=== PATIENT | female | born 1945 | race African-American/Black ===

== ENCOUNTER → 2016-07-19 | Outpatient (CLI) | payer MEDICARE ==
[~2016-07-19] MED LIST: ACETAMINOPHEN PO; ALBUTEROL 0.5ML NEB; ARIXTRA2.5 MG/0.1 SQ; ASPIRIN PO; ASPIRIN81 M1 PO; ASPIRIN81 MG PO; BACTRIM DS TAB1 EACH PO; BACTRIM DS TABL1 TA1 PO; BACTRIM DS TABL1 TAB PO; BAYER CHEWABLE81 MG PO; CARAFATE1 GM PO; CATAPRES-TTS-20.2 M1 TD; CATAPRES0.1 MG TD; CLOPIDOGREL75 MG PO; COLACE PO; COUMADIN2.5 MG PO; DAKIN'S MODIF1000 ML EXT; DARVOCET-N 1001 TA1 PO; ELIQUIS5 MG PO; FERREX 150 PLU1 EACH PO; FLEXERIL PO; GLUCOPHAGE500 MG PO; GLUCOTROL PO; HUMALOG100 UNIT/2 SUBQ; HUMULIN N VIAL; HUMULIN N VIAL SUBQ; HYDRALAZINE HCL25 MG PO; HYDROCHLOROTHIA25 MG PO; HYDROCODON-ACE1 EAC5 PO; HYDROCODONE/APA1 T16 PO; IRON325 ( 651 PO; LANTUS SOL100 UNIT/1 SUBQ; LANTUS100 U/ML SUBD; LANTUS100 U/ML SUBQ; LEVAQUIN PO; LEVAQUIN750 M1 PO; LIPITOR80 MG PO; LISINOPRIL PO; LISINOPRIL20 MG PO; LOPRESSOR PO; LORTAB 10-5001 EACH PO; LORTAB 5-325 M1 EACH PO; LORTAB 7.5-3251 EACH PO; LORTAB 7.5-5001 TAB PO; LORTAB PO; LOW DOSE ASPIRI81 M2 PO; MAGNESIUM200 MG PO; MAGNESIUM400 M1 PO; MAGNESIUM400 MG PO; MAGOX 400400 MG PO; MELATONIN3 M4 PO; METFORMIN HCL750 MG PO; METFORMIN PO; METOPROLOL PO; METOPROLOL TAR100 MG PO; MIRALAX17 G2 PO; MULTIVITAMINS1 EAC3; NEURONTIN PO; NEURONTIN100 MG PO; NORVASC10 MG PO; NOVOLOG MI100 UNIT/1 SUBQ; NOVOLOG100 U/M2; NOVOLOG100 U/ML SUBQ; PERCOCET5/325 PO; PLAVIX PO; POLYSACC IRON150 MG PO; PRILOSEC20 M1 PO; PRINIVIL40 MG PO; PROBIOTIC250 MG PO; PROTONIX PO; REMERON15 MG PO; THERA-M CAPLET1 EACH PO; TOPROL XL PO; TOPROL XL100 MG PO; TYLENOL325 M1 PO; VICODIN 5/500 T1 TAB PO; XANAX0.5 M1 PO; ZESTORETIC 20/21 TAB PO; ZESTRIL40 MG PO; ZOFRAN8 MG PO; [UNRECOGNIZED DRUG - REMARK]
== END | disposition home or self-care (01) ==
LOC: CLAB 13:08
DX: H46.01 Optic papillitis, right eye (principal)
CPT/HCPCS: 36415; 85652; 86140

== ENCOUNTER 2016-08-09 20:49 | Emergency (ER) | payer MEDICARE ==
--- NOTE | ~2016-08-09 | CT16 ---
[facility] A Service of [facility] RADIOLOGY TEXT RESULTS PATIENT: MAC ALEXANDER LOCATION: [facility] : 44 UNIT #: [id number] AGE: [address]: Diana Melchor MD SEX: F ORDER DR: [id number] [facility] [address] [place], [place] [address] [id number] E MR#: [id number] Acc #: [id number] NAME: MAC ALEXANDER : 1945 SEX: F STUDY DATE/TIME: 08/10/2016 2:30 UNIT: [facility] ROOM: STUDY DESCRIPTION: CT Angio Chest for PE Attending Physician: Diana Melchor M.D. Ordering Physician: Diana Melchor M.D. Primary Care Physician: Luis Luna Jr., M.D. MEDICAL IMAGING REPORT This report is preliminary unless electronic signature is present EXAM CTA chest INDICATION Chest pain. Elevated D-dimer. Shortness of air for [address] angiography of the chest utilizing 100 mm Isovue-370 IV contrast. Coronal 3-D MIP reconstructions and standard sagittal reconstructions were obtained. This CT exam was performed with one or more of the following radiation dose reduction techniques: automatic exposure control, adjustment of mA and/or kV according to patient size, and iterative reconstruction. COMPARISON Chest radiograph dated 08/09/2016. FINDINGS No pulmonary embolus. There is moderate atherosclerotic disease within the thoracic aorta, however, there is no aneurysm or dissection. Great vessels are widely patent. 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 The superior mesenteric artery is nearly occluded. The celiac artery may be occluded. Dense calcifications in this area are limited in evaluation on CT. There are some borderline enlarged mediastinal and hilar lymph nodes. A precarinal lymph node measures 1.1 cm in short axis. There is emphysema in the lungs. There is diffuse tree-in-bud nodularity [facility] A Service [facility] RADIOLOGY TEXT RESULTS PATIENT: MAC ALEXANDER LOCATION: [facility] : 44 UNIT #: [id number] AGE: [address]: Diana Melchor MD SEX: F ORDER DR: suggesting an acute infectious process. This has an upper lobe predominance, however is noted throughout both lungs. Central airways are patent. No dense consolidation. Limited images of the upper abdomen were obtained. There is a low-attenuation right adrenal nodule measuring 2.6 cm. This is consistent with a benign adrenal adenoma. No acute osseous abnormalities. IMPRESSION 1. Negative for pulmonary embolus. 2. Diffuse tree-in-bud nodularity with an upper lobe predominance in both lungs. This is most commonly associated with a small airways infection. No dense consolidation. 3. Diffuse atherosclerotic disease throughout the thoracic and abdominal aorta. 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 Dictated by... Jonny Delgadillo M.D. THIS IS AN ELECTRONICALLY VERIFIED REPORT Jonny Delgadillo M.D. at 08/10/2016 11:22 PM JOHNNIE/behzad TD: 08/10/2016 04:57 JOB #: [id number] MEDICAL IMAGING REPORT Page 1 of 1 COPY
--- NOTE | ~2016-08-09 | EKG ---
PATIENT: MAC ALEXANDER UNIT #: [id number] Ventricular Rate: 91 BPM Atrial Rate: 91 BPM P-R Interval: 154 ms QRS Duration: 88 ms Q-T Interval: 404 ms QTC Calculation(Bezet): 496 ms P [place]: 56 degrees Calculated R [place]: 72 degrees Calculated T [place]: 68 degrees Diagnosis Line: Sinus rhythm with Premature supraventricular Diagnosis Line: complexes Diagnosis Line: Prolonged QT Diagnosis Line: Abnormal ECG Diagnosis Line: When compared with ECG of 09-AUG-2016 20:52, Diagnosis Line: (unconfirmed) Diagnosis Line: Previous ECG has undetermined rhythm, needs review Diagnosis Line: Confirmed by JUSTINA DARBY MD ([id number]) on 08/11/2016 Diagnosis Line: 5:56:58 PM INTERPRETING MD: WILNER DEAN
--- NOTE | ~2016-08-09 | CR72 ---
[facility] A Service of [facility] RADIOLOGY TEXT RESULTS PATIENT: MAC ALEXANDER LOCATION: [facility] : 43 UNIT #: [id number] AGE: [address]: Diana Melchor MD SEX: F ORDER DR: [id number] [facility] [address] [place], [place] [address] [id number] E MR#: [id number] Acc #: [id number] NAME: MAC ALEXANDER : 1945 SEX: F STUDY DATE/TIME: 08/09/2016 22:37 UNIT: [facility] ROOM: STUDY DESCRIPTION: CR Chest Single View Portable Attending Physician: Diana Melchor M.D. Ordering Physician: Ed Tera Wolf M.D. Primary Care Physician: Luis Luna Jr., M.D. MEDICAL IMAGING REPORT This report is preliminary unless electronic signature is present EXAM Single view chest. INDICATION Chest pain. Shortness of air. FINDINGS Single portable AP view of the chest compared to 06/15/2008. Heart and mediastinal contours are unchanged. There is some chronic interstitial opacities in both lungs. No focal consolidation. IMPRESSION Mild cardiomegaly and chronic interstitial opacities. No new findings. Dictated by... Jonny Delgadillo M.D. THIS IS AN ELECTRONICALLY VERIFIED REPORT Jonny Delgadillo M.D. at 08/10/2016 4:03 AM JOHNNIE/zaynab TD: 08/10/2016 02:46 JOB #: [id number] MEDICAL IMAGING REPORT Page 1 of 1 COPY
[~2016-08-09 20:49] MED LIST changes: -ALBUTEROL 0.5ML NEB; -ASPIRIN81 MG PO; -BACTRIM DS TAB1 EACH PO; -CARAFATE1 GM PO; -CATAPRES-TTS-20.2 M1 TD; -CATAPRES0.1 MG TD; -ELIQUIS5 MG PO; -FERREX 150 PLU1 EACH PO; -FLEXERIL PO; -HUMALOG100 UNIT/2 SUBQ; -HUMULIN N VIAL; -LANTUS SOL100 UNIT/1 SUBQ; -LIPITOR80 MG PO; -LISINOPRIL20 MG PO; -LORTAB 5-325 M1 EACH PO; -LOW DOSE ASPIRI81 M2 PO; -MAGNESIUM400 M1 PO; -MAGOX 400400 MG PO; -MIRALAX17 G2 PO; -MULTIVITAMINS1 EAC3; -NOVOLOG MI100 UNIT/1 SUBQ; -PRINIVIL40 MG PO; -THERA-M CAPLET1 EACH PO; -TOPROL XL100 MG PO; -TYLENOL325 M1 PO
[2016-08-09 21:46] LABS: BASOPHIL% 0.2 % (0-2.5); EOSINOPHIL# 0.2 X10e3 (0-0.7); EOSINOPHIL% 1.7 % (0.0-7.0); HEMATOCRIT 30.8 % (35.0-45.0); HEMOGLOBIN 9.2 gm/dL (12.0-16.0); LYMPHOCYTE# 3.7 X10e3 (1.0-3.5); LYMPHOCYTE% 33.4 % (17.0-45.0); MEAN CELL VOLUME 65.2 FL (83-96); MEAN CORPUSCULAR HEMOGLOBIN 19.4 PG (28-34); MEAN CORPUSCULAR HGB CONC 29.8 g/dL (30-36); MEAN PLATELET VOLUME 8.6 FL (6.5-11.5); MONOCYTE# 0.8 X10e3 (0-1.0); MONOCYTE% 7.3 % (3.0-12.0); NEUTROPHIL# 6.4 X10e3 (1.5-7.1); NEUTROPHIL% 57.4 % (40-75); PLATELET COUNT 378 X10e3 (140-420); RED BLOOD COUNT 4.72 X10e (3.90-5.30); RED CELL DISTRIBUTION WIDTH 18.7 % (11.0-15.5); WHITE BLOOD COUNT 11.2 X10e3 (4.0-10.5)
[2016-08-09 21:49] LABS: DIFF IND NO
[2016-08-09 22:06] LABS: BILIRUBIN, DIRECT 0.1 mg/dL (0.0-0.2); BILIRUBIN,INDIRECT 0.3 mg/dL (0.0-0.9); BILIRUBIN,TOTAL 0.4 mg/dL (0.2-2.0); BUN/CREATININE RATIO 13.33; CALCIUM SERUM 8.5 mg/dL (8.4-10.2); CREATININE SERUM 0.6 mg/dL (0.6-1.4); GLOM FILT RATE Estimated 105.5 mL/min (>60); POTASSIUM 3.1 mmol/L (3.5-5.1); PROTEIN TOTAL SERUM 7.2 g/dL (6.0-8.3)
[2016-08-09 23:22] LABS: POC - CKMB 2.1 ng/mL (0.0-7.9); POC - TROPONIN <0.05 ng/mL (<=0.05)
[2016-08-10 02:05] LABS: POC - CKMB 1.6 ng/mL (0.0-7.9); POC - TROPONIN <0.05 ng/mL (<=0.05)
== END 2016-08-10 04:23 | disposition home or self-care (01) ==
LOC: CED 20:49
PROVIDERS: Emergency Medicine
DX: J40 Bronchitis, not specified as acute or chronic (principal); I10 Essential (primary) hypertension; E78.5 Hyperlipidemia, unspecified; Z98.890 Other specified postprocedural states; Z88.0 Allergy status to penicillin; Z79.899 Other long term (current) drug therapy; Z79.4 Long term (current) use of insulin
CPT/HCPCS: 36415; 71010; 71275; 80048; 80076; 82553; 84484; 85025; 85379; 93005; 99284; Q9967

== ENCOUNTER 2016-10-03 20:32 | Inpatient (IN) | payer MEDICARE ==
[~2016-10-03] VITALS: Ht 154.9 cm; Wt 72.0 kg
--- NOTE | ~2016-10-03 | DS ---
Unit #: [id number] #: [id number] Patient: MAC ALEXANDER [id number] [address] [place], [place] [address] [id number] I MR#: [id number] NAME: MAC ALEXANDER. ROOM: 326 Age: 71 Sex: F Admission Date: 10/03/2016 : 1945 Discharge Date: 10/09/2016 Attending Physician: Augustus Pandey M.D. Referring Physician: Luis Luna Jr., M.D. Primary Care Physician: Luis Luna Jr., M.D. DISCHARGE SUMMARY DISCHARGE DIAGNOSES 1. Acute blood loss anemia, status post transfusion, status post [facility] evaluation, status post EGD which showed peptic ulcer disease. Continue twice daily proton pump inhibitor per [facility]' recommendation. Avoid anticoagulation. Okay for baby aspirin. 2. Leukocytosis, status post negative procalcitonin at 0.05. No signs of active infection, afebrile. Discharge date leukocytes 13.8, most likely reactive. 3. Diabetes. Had been not eating well secondary to some nausea and vomiting. Therefore, continue just the sliding scale. Consider resuming home insulin regime as she starts taking more p.o. 4. History of cerebrovascular accident. Continue baby aspirin. DISCHARGE MEDICATIONS 1. Tylenol p.r.n. 2. Albuterol inhaler q.6 hours p.r.n. nebulizer for shortness of air. 3. Magnesium oxide 200 mg daily. 4. Neurontin 200 mg p.o. t.i.d. 5. Zofran 8 mg q.8 hours p.r.n. for nausea. 6. Lipitor 80 mg at bedtime. 7. Norvasc 5 mg daily. 8. Toprol-XL 100 mg p.o. b.i.d. 9. MiraLax daily. 10. Catapres 0.2 mg transdermal weekly. 11. Lisinopril 20 mg daily. 12. Sliding scale insulin. 13. Ferrex 150 plus capsule 1 tablet b.i.d. 14. Carafate 1 g p.o. before meals and at bedtime. 15. Multivitamin daily. 16. Baby aspirin 81 mg daily. 17. Lortab 5/325 at 1 tablet q.6 p.r.n. for pain. 18. Protonix 40 p.o. b.i.d. DISPOSITION Going back to [facility] to Dr. Jasiel Paniagua[facility] to follow patient [facility]. Dictated by..Reji Springer M.D. OC/am TD: 10/09/2016 18:29 Unit #: [id number] #: [id number] Patient: MAC ALEXANDER JOB #: [id number] DISCHARGE SUMMARY Page 1 of 1 X Ilia Springer MD X DISCHARGE SUMMARY
--- NOTE | ~2016-10-03 | HP ---
Unit #: [id number] #: [id number] Patient: MAC ALEXANDER [id number] [address] [place], [place] [address] [id number] I MR#: [id number] NAME: MAC ALEXANDER. ROOM: 326 Age: 71 Sex: F Admission Date: 10/04/2016 : 1945 Attending Physician: Augustus Pandey M.D. Referring Physician: Luis Luna Jr., M.D. Primary Care Physician: Luis Luna Jr., M.D. HISTORY AND PHYSICAL CHIEF COMPLAINT Acute GI bleed. HISTORY OF PRESENT ILLNESS The patient is a 71-year-old female who is a resident of [facility], came because of the GI bleed. Patient is a very poor historian. A lot of history was taken from patient's daughter and also from ER notes. Patient was admitted at [facility] in August for the same kind of reason and she went for EGD and a cardiac arrest per patient's daughter and after that she was sent to [facility] for further treatment. Patient was transferred from [facility] for above reason. She is complaining of abdominal pain. She is still vomiting. She had a bowel movement, which was bright red blood. No complaint of fever, chills, or rigors, at least patient does not know. PAST MEDICAL HISTORY 1. Diabetes mellitus. 2. Hypertension. 3. History of CVA. 4. 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 5. History of GI bleed in the past. 6. History of peripheral vascular disease, status post right above knee amputation. 7. History of anemia. 8. History of hypertension. 9. Hyperlipidemia. 10. Chronic pain. 11. Depression. HOME MEDICATIONS 1. Proventil inhaler nebulizer p.r.n. 2. Aspirin 81 mg daily. 3. Catapres 0.2 mg q. weekly. 4. Multivitamin q. day. 5. Flexeril 5 mg twice a day. 6. Eliquis 5 mg twice a day. I am not sure about this medication as per patient's daughter, she has been off since July. 7. Ferrex 150 plus twice a day. 8. Neurontin 200 mg 3 times a day. 9. Humulin N sliding scale. 10. Lantus 10 units at bedtime. 11. Lipitor 80 mg daily. 12. Prinivil 40 mg daily. 13. MiraLAX 17 g daily. Unit #: [id number] #: [id number] Patient: MAC ALEXANDER 14. Lortab 5/325 p.r.n. 15. Norvasc 5 mg daily. 16. Protonix 40 mg daily. 17. Toprol XL 100 mg twice a day. 18. Zofran 8 mg q.8 p.r.n. SOCIAL HISTORY Patient is at a rehab facility at this time. No history of smoking, alcohol, or drug abuse. PAST SURGICAL HISTORY 1. History of right above knee amputation. 2. History of IVC filter placed. 3. History of hernia repair. FAMILY HISTORY History of diabetes in the family. ALLERGIES Penicillin. REVIEW OF SYSTEMS As per history of presenting illness. According to patient's daughter there was no fever, chills or rigors. There was no chest pain. No syncopal episode. No dizziness. The rest is as per history of presenting illness. PHYSICAL EXAMINATION GENERAL: The patient is lying in bed, is still vomiting. VITAL SIGNS: Blood pressure is 171/52, respiratory rate 16, pulse 60, temperature 98.8, oxygen saturation is 100%. HEENT: Head is normocephalic. Eye movements normal. Pale conjunctivae. CHEST: Fair air entry, decreased at the bases. CVS: S1 and S2 positive. Regular rhythm. ABDOMEN: Tenderness is present throughout. EXTREMITIES: Negative edema. 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 No focal neurological deficit. As far as I can tell, but this exam was limited, please note patient has right lower extremity above knee amputation. DIAGNOSTIC STUDIES LABORATORY STUDIES: Done in the ER shows sodium 134, potassium 4.2, chloride 101, BUN 23, creatinine 0.7. WBC is 13.9, hemoglobin 4.9, hematocrit 16.8 and platelet count of 291. ASSESSMENT The patient is being admitted to ICU with: 1. Severe anemia. 2. Acute GI bleed. 3. Abdominal pain. 4. History of chronic pancreatitis. 5. Diabetes mellitus. 6. History of CVA. 7. History of PE and DVT. 8. Hypertension. PLAN Admit to ICU. Packed rbc's transfusion is being started. Dr. De Guzman has Unit #: [id number] #: [id number] Patient: MAC ALEXANDER C been consulted. IV Protonix drip is being started. Discharge summary from [facility] will be obtained. Amylase and lipase will be done. Cardiac enzymes will be done. Urinalysis and culture will be done. SCDs bilateral for DVT prophylaxis. Accu-Chek a.c. and h.s. and insulin sliding scale, low does protocol. Home medications have been reviewed and adjusted. Please refer to progress note for further orders. I have discussed with patient's daughter about plan of care. Dictated by Altagracia Buitrago TD: 10/04/2016 12:44 JOB #: [id number] HISTORY AND PHYSICAL Page 1 of 1 X Deepthi Gann MD X HISTORY AND PHYSICAL
--- NOTE | ~2016-10-03 | EKG ---
PATIENT: MAC ALEXANDER UNIT #: [id number] Ventricular Rate: 79 BPM Atrial Rate: 79 BPM P-R Interval: 146 ms QRS Duration: 88 ms Q-T Interval: 402 ms QTC Calculation(Bezet): 460 ms P [place]: 46 degrees Calculated R [place]: 123 degrees Calculated T [place]: -15 degrees Diagnosis Line: Sinus rhythm with occasional Premature ventricular Diagnosis Line: complexes Diagnosis Line: Left posterior fascicular block Diagnosis Line: T wave abnormality, consider inferior ischemia Diagnosis Line: Abnormal ECG Diagnosis Line: When compared with ECG of 04-OCT-2016 12:35, Diagnosis Line: Premature ventricular complexes are now Present Diagnosis Line: Left posterior fascicular block is now Present Diagnosis Line: T wave inversion now evident in Inferior leads Diagnosis Line: T wave amplitude has increased in Lateral leads Diagnosis Line: Confirmed by GUILLE ELMORE MD ([id number]) on Diagnosis Line: 10/07/2016 7:30:22 AM INTERPRETING MD: CATARINA DEAN
--- NOTE | ~2016-10-03 | OR ---
Unit #: [id number] #: [id number] Patient: MAC ALEXANDER [id number] [address] [place], [place] [address] [id number] I MR#: [id number] NAME: MAC ALEXANDER. ROOM: 326 Date of Procedure: 10/07/2016 Admission Date: 10/03/2016 Surgeon: Sylvester Madrigal III, M.D. : 1945 Attending Physician: Augustus Pandey M.D. Referring Physician: Luis Luna Jr., M.D. Primary Care Physician: Luis Luna Jr., M.D. OPERATIVE REPORT PREOPERATIVE DIAGNOSIS Gastrointestinal bleed with anemia. POSTOPERATIVE DIAGNOSIS Multiple ulcers within the stomach with a prominent ulcer along the lesser curvature with a plaque. She also had mild scattered diverticulosis of the colon. PROCEDURES PERFORMED Esophagogastroduodenoscopy with biopsy and colonoscopy to cecum. ANESTHESIA MAC. SPECIMENS Antrum was sent for LIZETTE testing. COMPLICATIONS None apparent. INDICATIONS FOR PROCEDURE This is a 71-year-old lady, who has previously been anticoagulated. She developed a GI bleed with anemia and has stabilized after transfusion. She is here today for upper and lower endoscopy. DESCRIPTION OF PROCEDURE After consent was obtained, the patient was brought to the endoscopy suite, placed in the left lateral decubitus position. We titrated the above sedation and I passed an EGD scope easily into the esophagus under direct visualization. She had normal peristalsis. No evidence of any erosions or esophagitis. There was no significant hiatal hernia seen. I advanced the scope on into the stomach and she had some diffuse ulcerations along the greater curvature of the stomach, but no active bleeding. She did have an approximately a 1.5 cm to 2 cm ulcer along the lesser curvature of the stomach that was covered with the plaque. There was no active bleeding. I did take a biopsy of the antrum for LIZETTE testing. The pylorus was patent, and the 1st and 2nd portions of the duodenum appeared normal. I then again retroflexed the scope within the cardia and did not see any other abnormalities. The scope was then placed within the rectal vault. Air was insufflated and I navigated the scope all the way to the cecum without any difficulty. She had normal mucosa. There was some dark black liquid within the colon, but no active bleeding. Unit #: [id number] #: [id number] Patient: MAC ALEXANDER I did not see any masses or polyps. She did have some mild scattered diverticular disease, but there was no blood from any of the diverticula. I did not see any AVMs. The scope was retroflexed within the rectum and no other masses were seen. The scope was then carefully withdrawn. The patient tolerated the procedure without any problems and returned to the recovery room in stable condition. We will go ahead, and maintain her on Protonix and add Carafate. Dictated by... Sylvester Madrigal III, M.D. VCL/gloria TD: 10/09/2016 04:10 JOB #: [id number] OPERATIVE REPORT Page 1 of 1 X Sylvester Madrigal III, MD PROCEDURE OPERATIVE NOTE
--- NOTE | ~2016-10-03 | EKG ---
PATIENT: MAC ALEXANDER UNIT #: [id number] Ventricular Rate: 66 BPM Atrial Rate: 66 BPM P-R Interval: 156 ms QRS Duration: 92 ms Q-T Interval: 422 ms QTC Calculation(Bezet): 442 ms P [place]: 52 degrees Calculated R [place]: 50 degrees Calculated T [place]: 41 degrees Diagnosis Line: Normal sinus rhythm Diagnosis Line: Possible Left atrial enlargement Diagnosis Line: Borderline ECG Diagnosis Line: When compared with ECG of 09-AUG-2016 20:54, Diagnosis Line: Premature supraventricular complexes are no longer Diagnosis Line: Present Diagnosis Line: QT has shortened Diagnosis Line: Confirmed by GUILLE ELMORE MD ([id number]) on Diagnosis Line: 10/05/2016 8:29:58 AM INTERPRETING MD: CATARINA DEAN
[2016-10-03 21:51] LABS: BASOPHIL# 0.1 X10e3 (0-0.3); EOSINOPHIL# 0.8 X10e3 (0-0.7); EOSINOPHIL% 5.7 % (0.0-7.0); HEMATOCRIT 16.8 % (35.0-45.0); LYMPHOCYTE# 3.3 X10e3 (1.0-3.5); LYMPHOCYTE% 23.6 % (17.0-45.0); MEAN CELL VOLUME 63.9 FL (83-96); MEAN CORPUSCULAR HEMOGLOBIN 18.8 PG (28-34); MEAN CORPUSCULAR HGB CONC 29.5 g/dL (30-36); MEAN PLATELET VOLUME 9.2 FL (6.5-11.5); MONOCYTE% 7.4 % (3.0-12.0); NEUTROPHIL# 8.6 X10e3 (1.5-7.1); NEUTROPHIL% 62.3 % (40-75); PLATELET COUNT 291 X10e3 (140-420); RED BLOOD COUNT 2.62 X10e (3.90-5.30); RED CELL DISTRIBUTION WIDTH 26.6 % (11.0-15.5); WHITE BLOOD COUNT 13.9 X10e3 (4.0-10.5)
[2016-10-03 22:00] LABS: DIFF IND YES; HEMOGLOBIN 4.9 gm/dL (12.0-16.0)
[2016-10-03 22:12] LABS: INR 1.1; PARTIAL THROMBOPLASTIN TIME 24.6 SECONDS (23.5-31.3); PROTHROMBIN TIME (PATIENT) 11.5 SECONDS (10.0-11.7)
[2016-10-03 22:14] LABS: ALBUMIN SERUM 2.5 g/dL (3.5-5.0); ALKALINE PHOSPHATASE 107 U/L (32-92); ALT (SGPT) 12 U/L (10-40); AST (SGOT) 17 U/L (10-42); BILIRUBIN, DIRECT <0.1 mg/dL (0.0-0.2); BILIRUBIN,INDIRECT 0.3 mg/dL (0.0-0.9); BILIRUBIN,TOTAL 0.4 mg/dL (0.2-2.0); BLOOD UREA NITROGEN 23 mg/dL (9-23); BUN/CREATININE RATIO 32.85; CALCIUM SERUM 8.2 mg/dL (8.4-10.2); CARBON DIOXIDE 28 mmol/L (22-31); CHLORIDE 101 mmol/L (100-111); CREATININE SERUM 0.7 mg/dL (0.6-1.4); GLOM FILT RATE Estimated 100.3 mL/min (>60); GLUCOSE FASTING 143 mg/dL (70-110); POTASSIUM 4.2 mmol/L (3.5-5.1); PROTEIN TOTAL SERUM 5.9 g/dL (6.0-8.3); SODIUM 134 mmol/L (135-145)
[2016-10-03 22:22] LABS: PLATELET ESTIMATE NORMAL (NORMAL)
[2016-10-03 22:23] LABS: ACANTHOCYTES PRESENT; ANISOCYTOSIS MOD; OVALOCYTES PRESENT; TARGET CELLS MOD
[2016-10-03 22:24] LABS: BURR CELLS PRESENT
[2016-10-04] MEDS ORDERED: ALBUTEROL 0.5ML NEB (01:10)
[2016-10-04] MEDS ORDERED: ASPIRIN81 MG PO (01:11)
[2016-10-04] MEDS ORDERED: MULTIVITAMINS1 EAC3 (01:11)
[2016-10-04] MEDS ORDERED: CATAPRES0.1 MG TD (01:11)
[2016-10-04] MEDS ORDERED: FLEXERIL PO (01:13)
[2016-10-04] MEDS ORDERED: ELIQUIS5 MG PO (01:13)
[2016-10-04] MEDS ORDERED: FERREX 150 PLU1 EACH PO (02:07)
[2016-10-04] MEDS ORDERED: NEURONTIN100 MG PO (02:08)
[2016-10-04] MEDS ORDERED: HUMULIN N VIAL (02:08)
[2016-10-04] MEDS ORDERED: LANTUS100 U/ML SUBQ (02:09)
[2016-10-04] MEDS ORDERED: LIPITOR80 MG PO (02:10)
[2016-10-04] MEDS ORDERED: PRINIVIL40 MG PO (02:11)
[2016-10-04] MEDS ORDERED: MIRALAX17 G2 PO (02:11)
[2016-10-04] MEDS ORDERED: MAGOX 400400 MG PO (02:11)
[2016-10-04] MEDS ORDERED: LORTAB 5-325 M1 EACH PO (02:13)
[2016-10-04] MEDS ORDERED: NORVASC10 MG PO (02:14)
[2016-10-04] MEDS ORDERED: POLYSACC IRON150 MG PO (02:15)
[2016-10-04] MEDS ORDERED: NOVOLOG MI100 UNIT/1 SUBQ (02:15)
[2016-10-04] MEDS ORDERED: PROTONIX PO (02:16)
[2016-10-04] MEDS ORDERED: TOPROL XL100 MG PO (02:17)
[2016-10-04] MEDS ORDERED: ZOFRAN8 MG PO (02:17)
[2016-10-04 12:29] LABS: HEMATOCRIT 25.5 % (35.0-45.0)
[2016-10-04 16:48] LABS: HEMATOCRIT 24.4 % (35.0-45.0); HEMOGLOBIN 7.7 gm/dL (12.0-16.0)
[2016-10-04 17:07] LABS: AMYLASE 12 U/L (0-46); CK TOTAL 22 IU/L (26-140); LIPASE 24 U/L (22-51)
[2016-10-04 20:41] LABS: HEMOGLOBIN 7.2 gm/dL (12.0-16.0)
[2016-10-04 23:18] LABS: HEMATOCRIT 22.4 % (35.0-45.0); HEMOGLOBIN 7.1 gm/dL (12.0-16.0)
[2016-10-05 08:25] LABS: HEMATOCRIT 20.3 % (35.0-45.0)
[2016-10-05 08:45] LABS: HEMOGLOBIN 6.2 gm/dL (12.0-16.0)
[2016-10-05 14:57] LABS: HEMATOCRIT 24.1 % (35.0-45.0); HEMOGLOBIN 7.5 gm/dL (12.0-16.0)
[2016-10-05 15:05] LABS: CALCIUM SERUM 7.9 mg/dL (8.4-10.2); CREATININE SERUM 0.6 mg/dL (0.6-1.4); GLOM FILT RATE Estimated 105.5 mL/min (>60); POTASSIUM 4.4 mmol/L (3.5-5.1)
[2016-10-05 21:16] LABS: HEMATOCRIT 25.8 % (35.0-45.0); HEMOGLOBIN 8.2 gm/dL (12.0-16.0)
[2016-10-05 22:27] LABS: CK TOTAL 21 IU/L (26-140)
[2016-10-06 01:55] LABS: HEMATOCRIT 24.9 % (35.0-45.0); HEMOGLOBIN 7.9 gm/dL (12.0-16.0)
[2016-10-06 04:27] LABS: HEMATOCRIT 25.8 % (35.0-45.0); MEAN CELL VOLUME 79.1 FL (83-96); MEAN CORPUSCULAR HEMOGLOBIN 24.5 PG (28-34); MEAN PLATELET VOLUME 9.5 FL (6.5-11.5); RED BLOOD COUNT 3.27 X10e (3.90-5.30); RED CELL DISTRIBUTION WIDTH 22.9 % (11.0-15.5); WHITE BLOOD COUNT 16.7 X10e3 (4.0-10.5)
[2016-10-06 06:35] LABS: BUN/CREATININE RATIO 33.33; CALCIUM SERUM 8.1 mg/dL (8.4-10.2); CREATININE SERUM 0.6 mg/dL (0.6-1.4); GLOM FILT RATE Estimated 105.5 mL/min (>60); POTASSIUM 4.1 mmol/L (3.5-5.1)
[2016-10-06 09:09] LABS: HEMATOCRIT 25.7 % (35.0-45.0); HEMOGLOBIN 8.1 gm/dL (12.0-16.0)
[2016-10-06 12:19] LABS: HEMATOCRIT 26.2 % (35.0-45.0)
[2016-10-07 05:35] LABS: BASOPHIL# 0.1 X10e3 (0-0.3); BASOPHIL% 0.6 % (0-2.5); EOSINOPHIL# 1.3 X10e3 (0-0.7); EOSINOPHIL% 8.7 % (0.0-7.0); HEMATOCRIT 25.7 % (35.0-45.0); HEMOGLOBIN 8.2 gm/dL (12.0-16.0); LYMPHOCYTE# 4.3 X10e3 (1.0-3.5); LYMPHOCYTE% 29.1 % (17.0-45.0); MEAN CELL VOLUME 78.6 FL (83-96); MEAN CORPUSCULAR HGB CONC 31.9 g/dL (30-36); MEAN PLATELET VOLUME 9.8 FL (6.5-11.5); MONOCYTE# 1.2 X10e3 (0-1.0); MONOCYTE% 8.1 % (3.0-12.0); NEUTROPHIL# 7.9 X10e3 (1.5-7.1); NEUTROPHIL% 53.5 % (40-75); PLATELET COUNT 218 X10e3 (140-420); RED BLOOD COUNT 3.27 X10e (3.90-5.30); WHITE BLOOD COUNT 14.8 X10e3 (4.0-10.5)
[2016-10-07 05:38] LABS: DIFF IND NO
[2016-10-07 06:35] LABS: CALCIUM SERUM 8.1 mg/dL (8.4-10.2); CREATININE SERUM 0.5 mg/dL (0.6-1.4); GLOM FILT RATE Estimated 112.1 mL/min (>60); POTASSIUM 3.5 mmol/L (3.5-5.1)
[2016-10-07 06:55] LABS: PROCALCITONIN 0.05 NG/ML
[2016-10-08 08:31] LABS: HEMATOCRIT 26.4 % (35.0-45.0); HEMOGLOBIN 8.4 gm/dL (12.0-16.0); MEAN CELL VOLUME 78.6 FL (83-96); MEAN CORPUSCULAR HGB CONC 31.8 g/dL (30-36); MEAN PLATELET VOLUME 9.9 FL (6.5-11.5); RED BLOOD COUNT 3.35 X10e (3.90-5.30); RED CELL DISTRIBUTION WIDTH 22.1 % (11.0-15.5); WHITE BLOOD COUNT 15.6 X10e3 (4.0-10.5)
[2016-10-08 09:07] LABS: URINE APPEARANCE CLEAR; URINE BILIRUBIN NEG (NEG); URINE BLOOD 1+ (NEG); URINE COLOR YELLOW; URINE GLUCOSE NEG (NEG); URINE KETONE NEG (NEG); URINE LEUKOCYTE ESTERASE TRACE (NEG); URINE NITRATE NEG (NEG); URINE PH 7.5 (5-8); URINE PROTEIN 1+ (NEG); URINE SPECIFIC GRAVITY 1.009 (1.003-1.035); URINE UROBILINOGEN 0.2 MG/DL (NEG)
[2016-10-08 09:08] LABS: CALCIUM SERUM 8.1 mg/dL (8.4-10.2); CREATININE SERUM 0.5 mg/dL (0.6-1.4); GLOM FILT RATE Estimated 112.1 mL/min (>60); POTASSIUM 3.6 mmol/L (3.5-5.1)
[2016-10-08 09:15] LABS: CULTURE INDICATED? YES; URBCS1 AUWI 0-2 /[HPF] (0-2); URINE BACTERIA AUWI 2+ (NEGATIVE); URINE SQUAMOUS EPITHELIAL CELL NONE SEEN /[HPF]
[2016-10-09 09:12] LABS: HEMATOCRIT 25.5 % (35.0-45.0); HEMOGLOBIN 8.1 gm/dL (12.0-16.0); MEAN CELL VOLUME 78.8 FL (83-96); MEAN CORPUSCULAR HEMOGLOBIN 24.9 PG (28-34); MEAN CORPUSCULAR HGB CONC 31.7 g/dL (30-36); MEAN PLATELET VOLUME 9.6 FL (6.5-11.5); RED BLOOD COUNT 3.23 X10e (3.90-5.30); WHITE BLOOD COUNT 13.8 X10e3 (4.0-10.5)
== END 2016-10-10 11:33 | DRG 378 ==
LOC: CED 20:32 → C3A PCU 23:10 → CEDOF 23:10 → CED 10-04 00:13 → CEDOF 10-04 00:13 → C3A PCU 10-04 00:13 → CEDOF 10-04 03:40 → C3A PCU 10-10 11:33
PROVIDERS: Emergency Medicine; Hospitalist; Internal Medicine; Physician Assistant Medical; Surgery
PROC: 30233N1 Transfusion of Nonautologous Red Blood Cells into Peripheral Vein, Percutaneous Approach (ICD-10-PCS; 2016-10-03)
PROC: 0DB78ZX Excision of Stomach, Pylorus, Via Natural or Artificial Opening Endoscopic, Diagnostic (ICD-10-PCS; principal; 2016-10-09)
PROC: 0DJD8ZZ Inspection of Lower Intestinal Tract, Via Natural or Artificial Opening Endoscopic (ICD-10-PCS; 2016-10-09)
DX: K92.2 Gastrointestinal hemorrhage, unspecified (principal); D62 Acute posthemorrhagic anemia; E11.51 Type 2 diabetes mellitus with diabetic peripheral angiopathy without gangrene; Z89.611 Acquired absence of right leg above knee; D64.9 Anemia, unspecified; K25.9 Gastric ulcer, unspecified as acute or chronic, without hemorrhage or perforation; K57.30 Diverticulosis of large intestine without perforation or abscess without bleeding; F17.200 Nicotine dependence, unspecified, uncomplicated; Z86.73 Personal history of transient ischemic attack (TIA), and cerebral infarction without residual deficits; I10 Essential (primary) hypertension; Z86.711 Personal history of pulmonary embolism; Z86.718 Personal history of other venous thrombosis and embolism; E78.5 Hyperlipidemia, unspecified; G89.29 Other chronic pain; F32.9 Major depressive disorder, single episode, unspecified; Z79.82 Long term (current) use of aspirin; Z79.01 Long term (current) use of anticoagulants; Z79.4 Long term (current) use of insulin; Z83.3 Family history of diabetes mellitus; Z88.0 Allergy status to penicillin; D72.829 Elevated white blood cell count, unspecified
CPT/HCPCS: 36415; 80048; 80076; 81003; 82150; 82308; 82550; 82947; 83690; 84484; 85014; 85018; 85025; 85027; 85610; 85730; 86850; 86900; 86901; 86923; 87077; 87086; 93005; 94760; 97163; 97167; 97530; 97535; 99285; C9113; G8978-GP; G8979-GP; G8987-GO; G8988-GO; J0461; J1815; J2405; P9016

== ENCOUNTER 2016-11-18 18:16 | Inpatient (IN) | payer MEDICARE ==
[~2016-11-18] VITALS: Ht 154.9 cm; Wt 70.7 kg
--- NOTE | ~2016-11-18 | CO ---
Unit #: [id number] #: [id number] Patient: MAC NAVARRO [id number] [address] [place], [place] [address] [id number] I MR#: [id number] NAME: MAC NAVARRO. ROOM: 322 Age: 71 Sex: F Admission Date: 11/18/2016 : 1945 Attending Physician: Deepthi Gann M.D. Primary Care Physician: Luis Luna Jr., M.D. Consultation Date: 11/20/2016 CONSULTATION REPORT ADDITIONAL ATTENDING PHYSICIAN Augustus Pandey M.D. PRIMARY CARE PHYSICIAN Luis Luna M.D. MD2U. REASON FOR CONSULTATION GI bleed. HISTORY OF PRESENT ILLNESS Ms. Navarro is a 71-year-old female. Her daughter noticed the patient had some bleeding and noticed some fresh blood in the stool. Therefore brought her to the hospital. Incidentally, her hemoglobin has never been outside the range of between 8 and 9, and hemoglobin on admission was 8. Incidentally, the patient has had an upper endoscopy and a colonoscopy done by Dr. Madrigal about 2-1/2 months ago and these were unremarkable. It is also noteworthy the patient is a poor historian and is mostly complaining of back pain. She denies any history of abdominal pain and is not aware of passing any mary blood or having any hematemesis or melena. She is on long-term Eliquis because of her history of DVT and pulmonary embolism; although, she does have an IVC filter. PAST MEDICAL HISTORY Significant for history of diabetes, hypertension, stroke, COPD, peptic ulcer disease, chronic pain syndrome, depression, coronary artery disease. PAST SURGICAL HISTORY Included herniorrhaphy, placement of IVC filter, right above-knee amputation, left knee replacement. ALLERGIES She is allergic to penicillin. MEDICATIONS At home included Eliquis as well as aspirin, Proventil, Catapres, multivitamins, Flexeril, iron, Neurontin, insulin, Lipitor, Prinivil, magnesium oxide, Norvasc, Protonix, Lortab, MiraLAX, Toprol, and Zofran. SOCIAL HISTORY Smokes half pack of cigarette a day. Lives at home with her daughter. Does not drink alcohol. Unit #: [id number] #: [id number] Patient: MAC NAVARRO FAMILY HISTORY None of colon, pancreatic cancer, or liver disease. REVIEW OF SYSTEMS Detailed review of organ systems does not reveal any recent weight loss. No history of fever, chills, or rigors. No history of headaches, seizures, chest pain, or syncope. No history of cough, expectoration, or hemoptysis. There is no history of dysuria, hematuria, or pyuria. No history of focal seizures or extremity weakness. PHYSICAL EXAMINATION GENERAL: She is awake, alert, and oriented. She appears very anxious, apprehensive, and nervous. VITAL SIGNS: Stable with a temperature of 98.2, pulse is 108 per minute and regular, respiratory rate is 16, blood pressure is 128/94. She weighs 147 pounds close to her baseline weight. HEENT: She has mild pallor. There being no icterus, lymphadenopathy, or peripheral edema. CARDIOVASCULAR: Normal heart sounds. No murmurs on auscultation. LUNGS: Reveal normal breath sounds. Good air entry. ABDOMEN: Soft, obese, and nontender. Liver and spleen are not palpable. Bowel sounds normal. DIAGNOSTIC STUDIES LABORATORY RESULTS: Shows a hemoglobin of 8.1 with severely hypochromic microcytic indices and iron studies consistent with virtually no iron reserves, with iron ferritin and transferrin saturation all in single digits. White count is 14,000, platelet count is 264. INR is normal. BUN and creatinine are also normal. Sodium is 136, potassium 3.1, albumin is 2.9. LFTs show alkaline phosphatase is 187. INR is 0.9. CLINICAL IMPRESSION 1. Severe iron deficiency anemia. This seems to be chronic and has not corrected with oral iron, therefore intravenous iron therapy is appropriate and has already been started by Dr. Pandey. 2. Consider a diagnostic upper endoscopy later today and if the latter is normal, the patient can be discharged from GI standpoint. It is noteworthy she had a normal colonoscopy 2-1/[address] Madrigal. 3. Underlying long-term use of anticoagulation with Eliquis, needs to be revisited as this might be contributing to persistent anemia and occult gastrointestinal blood loss. Lastly, the patient has uncomorbidities with diabetes, hypertension, and anxiety as listed under the past medical history. An upper endoscopy to be done later today. Thank you very much for asking me to see this pleasant woman. I appreciate the consult. Dictated by... Altagracia Ruiz/gloria TD: 11/20/2016 18:23 JOB #: [id number] CC: Altagracia Leigh M.D. Jerry M. Benfield, Jr., M.D. Unit #: [id number] #: [id number] Patient: MAC NAVARRO CONSULTATION REPORT Page 1 of 1 X Taqueria De Guzman MD CONSULTATION REPORT
--- NOTE | ~2016-11-18 | HP ---
Unit #: [id number] #: [id number] Patient: MAC ALEXANDER [id number] [facility]. [place], [place] [address] [id number] I MR#: [id number] NAME: MAC ALEXANDER. ROOM: 322 Age: 71 Sex: F Admission Date: 11/18/2016 : 1945 Attending Physician: Deepthi Gann M.D. Primary Care Physician: Luis Luna Jr., M.D. HISTORY AND PHYSICAL HISTORY OF PRESENT ILLNESS The patient is a 71-year-old black female with a history of hypertension, type 2 diabetes mellitus, old CVA, PAD, right above the knee amputation, PE, DVT, IVC filter, apparently on Eliquis in the past with recurrent GI bleeding. Last admission September of 2016. Had an EGD showing peptic ulcer. It was recommended at that time that she DC her Eliquis and continue aspirin for stroke prevention. She was discharged to [facility]. Apparently she has been living at home now with her daughter and noticed some rectal bleeding. The patient is unaware of how long she has been bleeding or even that she was bleeding but stated that her daughter told her she saw blood in her stool. They called [facility] who came out and did a CBC and apparently referred her to the emergency room because of that. Here, her initial hemoglobin was 8.9. It has been stable since then and she was admitted for further evaluation. The patient is a poor historian. She is not sure if she had abdominal pain or not. She states that she didn't and then stated that she did just a few minutes ago but it is already gone. Of course, she has been NPO and may be having hunger pangs in any case. She is not clear about her home medicines. We have no official Med Rec. There is a list from the ER. I am not sure how correct it is but includes Proventil, aspirin, Catapres, multivitamins, Flexeril, Eliquis, iron, Neurontin, insulin, Lipitor, Prinivil, magnesium oxide, MiraLAX, Lortab, Norvasc, Protonix, Toprol and Zofran. ALLERGIES She has stated allergies to penicillin. SURGICAL HISTORY 1. Left knee replacement. 2. Right above the knee amputation. 3. Hernia repair. 4. IVC filter. PAST MEDICAL HISTORY 1. Coronary artery disease. 2. Hypertension. 3. CVA. 4. COPD. 5. Diabetes. 6. Peptic ulcer disease. 7. Chronic pain syndrome. 8. Depression. SOCIAL HISTORY Smokes half a pack of cigarettes daily. No alcohol or street drug use. Unit #: [id number] #: [id number] Patient: MAC ALEXANDER FAMILY HISTORY Noncontributory. PHYSICAL EXAMINATION She is awake, alert, oriented to person and place but not time. T-max overnight was 99.4, pulse 99, respirations 16, blood pressure 180/69. O2 sat 95% on room air. HEENT is unremarkable except for pale mucous membranes. NECK was supple without JVD, bruits, adenopathy or thyromegaly. CHEST clear to auscultation. HEART has a regular rate and rhythm without any murmurs, rubs or gallops. ABDOMEN was soft, nondistended, nontender with positive bowel sounds and no hepatosplenomegaly. EXTREMITIES show no clubbing, cyanosis or edema. Right above the knee amputation noted. AND RECTAL are deferred. NEUROLOGIC exam is grossly intact except for the patient's poor memory. DIAGNOSTIC STUDIES LAB VALUES: White count 11.8, hemoglobin 8.9 with low MCV, MCH and elevated RDW. Platelets 451,000. Stool for occult blood positive. Stool for C. diff negative. PT/INR 0.9, PTT 22.6, sodium 131. Random blood sugar of 504, alkaline phos of 187, albumin 2.9. IMPRESSION 1. Recurrent GI bleed. 2. Microcytic anemia. 3. Hypertension. 4. Type 2 diabetes mellitus. 5. Peripheral arterial disease, status post right above the knee amputation. 6. Old CVA. 7. History of deep vein thrombosis, PE and IVC filter. 8. Hyperlipidemia. 9. Hyponatremia. PLAN Normal saline, IV fluids. Follow sodium, follow hemoglobin. GI has been consulted. EGD is planned for tomorrow. SCDs for DVT prophylaxis. IV proton pump inhibitors. Clarify home meds. P.r.n. Vasotec, currently as needed. Sliding scale insulin, Accu-Cheks a.c. and h.s. IV proton pump inhibitors. IV iron and check iron, B12 and folic acid levels as well. Dictated by Altagracia Leigh/hossein TD: 11/19/2016 11:29 JOB #: [id number] Unit #: [id number] #: [id number] Patient: MAC ALEXANDER HISTORY AND PHYSICAL Page 1 of 1 X Augustus Pandey MD X HISTORY AND PHYSICAL
--- NOTE | ~2016-11-18 | OR ---
Unit #: [id number] #: [id number] Patient: MAC ALEXANDER [id number] [place], [place] [address] [id number] I MR#: [id number] NAME: MAC ALEXANDER. ROOM: 322 Date of Procedure: 11/20/2016 Admission Date: 11/18/2016 Surgeon: Taqueria De Guzman M.D. : 1945 Attending Physician: Deepthi Gann M.D. Primary Care Physician: Luis Luna Jr., M.D. OPERATIVE REPORT PREOPERATIVE DIAGNOSES 1. Iron deficiency anemia. 2. Gastrointestinal bleed. PROCEDURE PERFORMED Upper gastrointestinal endoscopy. POSTOPERATIVE DIAGNOSIS Completely normal examination up to third part of duodenum. RECOMMENDATIONS The patient has had a colonoscopy within the past few months by Dr. Madrigal and therefore there is a little reason to repeat it. The patient will continue IV iron infusions as already been started by Dr. Pandey. The patient can be started on 1800-calorie CCD diet as tolerated. Her IV Protonix can be discontinued and substitute with oral Protonix once a day, and repeat the CBC in the morning. She can be discharged from GI standpoint. SEDATION USED Versed 2 mg total, conscious sedation. DESCRIPTION OF PROCEDURE Following detailed explanation of the potential risks and complications of an upper endoscopy, namely perforation, bleeding, complication related to sedation, the patient was brought to GI lab and laid in the left lateral decubitus position. Lubricated tip of the Olympus video upper endoscope was passed through the bite block into the proximal esophagus under direct vision. The entire esophageal mucosa was examined and appeared normal. Z-line was nicely demarcated, there being no esophagitis or hiatus hernia. The scope was then advanced into the gastric cavity and the latter was insufflated. Mucosa of the fundus, body, and antrum was examined and appeared unremarkable. Pylorus was intubated with visualization of the normal duodenal bulb and second and third part of the duodenum. Upon withdrawal and retroflexion; incisura, cardia, and greater curve was examined and no additional findings were noted. The scope was then withdrawn in the distal esophagus. The entire esophageal mucosa was examined all the way up to pharynx. No additional findings were noted. The patient tolerated the procedure without any postprocedure complications. Unit #: [id number] #: [id number] Patient: MAC ALEXANDER Dictated by... Altagracia Ruiz/gloria TD: 11/20/2016 17:21 JOB #: [id number] CC: Altagracia Leigh M.D. OPERATIVE REPORT Page 1 of 1 X Taqueria De Guzman MD X PROCEDURE OPERATIVE NOTE
--- NOTE | ~2016-11-18 | DS ---
Unit #: [id number] #: [id number] Patient: MAC NAVARRO [id number] [address] [address] [id number] I MR#: [id number] NAME: MAC NAVARRO. ROOM: 322 Age: 71 Sex: F Admission Date: 11/18/2016 : 1945 Discharge Date: 11/23/2016 Attending Physician: Deepthi Gann M.D. Primary Care Physician: Luis Luna Jr., M.D. DISCHARGE SUMMARY CONSULTATION DURING HOSPITALIZATION Dr. Taqueria De Guzman from [facility]. ADMITTING PHYSICIAN Dr. Augustus Pandey DISCHARGING PHYSICIAN Dr. Deepthi Gann PROCEDURE PERFORMED DURING HOSPITALIZATION EGD which showed completely normal exam up to third part of the duodenum. LAB WORKUP ON DISCHARGE CBC shows WBC 13.2, hemoglobin 10.0, hematocrit 32.5, platelet count of 227, potassium 4.1, magnesium 2.1. Urine culture grew more than 100,000 colony, mixed growth of Gram-positive and Gram-negative olegario. BMP shows sodium 136, potassium 3.1, chloride 106, BUN less than 5, creatinine 0.7, calcium 8.4. Serum iron level was 107. B12 667, folic acid 18.8, ferritin 10. Occult blood in the stool was positive. C. diff was negative. SIGNIFICANT IMAGING STUDIES DONE DURING HOSPITALIZATION Chest x-ray which showed COPD. No active pulmonary disease. DISCHARGE DIAGNOSES 1. Possible gastrointestinal bleed. 2. Anemia, status post packed red blood cell transfusion. 3. Urinary tract infection. 4. Diabetes mellitus type 2. 5. Hypertension. 6. Coronary artery disease. 7. History of cerebrovascular accident. 8. Chronic obstructive pulmonary disease. 9. History of depression. 10. Chronic pain syndrome. DISCHARGE MEDICATIONS 1. Levaquin 500 mg q. day for 1 more day as patient has completed 6 days of antibiotics. 2. Protonix 40 mg b.i.d. 3. Aspirin 81 mg q. day. Unit #: [id number] #: [id number] Patient: MAC NAVARRO 4. Multivitamin q. day. 5. Carafate, continue home dose. 6. Niferex 150 twice a day. 7. Lantus 30 units subcu q. h.s. 8. Humalog 10 units subcu t.i.d. with meals. 9. Lisinopril 20 mg. q. day. Please note - dose of this medicine has been changed. 10. Catapres, continue home dose. 11. Toprol 100 mg b.i.d. 12. Norvasc 5 mg q. day. 13. Lipitor 80 mg q. h.s. 14. Zofran 8 mg q.8 p.r.n. 15. Neurontin 200 mg t.i.d. 16. Magnesium 400 mg daily. 17. Tylenol 650 q.6 p.r.n. HOSPITAL COURSE Ms. Mac Navarro is a 71-year-old female who has had multiple admissions in the hospital. Last admission was in September 2016 when she had acute blood loss anemia. Patient had EGD and colonoscope done at that time. EGD showed peptic ulcer disease as per Dr. De Guzman. Patient has had colonoscopy done within past few months by Dr. Madrigal. There is a little reason to repeat it. EGD was repeated which showed normal exam. Patient received packed RBC transfusion. She is doing much better at this time. Patient has been tolerating diet. Patient was found to have UTI although urine culture is growing mixed growth. Patient received Levaquin during hospitalization. She is afebrile. Leukocytosis is improving so will complete the course of Levaquin. Patient did have hyperkalemia and hypomagnesemia and that was replaced. Patient is doing well, is being discharged home in stable condition. Patient lives at home with her daughter. EXAMINATION ON DISCHARGE VITAL SIGNS: Blood pressure 150/55, respiratory rate 18, pulse is 67, temperature 98.6, oxygen saturation is 96%. HEAD: Head is normocephalic. Eye movements normal. CHEST: Chest has fair air entry. CVS: Regular rate and rhythm. ABDOMEN: Soft. No tenderness. DISCHARGE INSTRUCTIONS 1. Patient is being discharged home in stable condition. 2. A home health agency to follow the patient at home. 3. CBC to be done in 1 week. 4. BMP to be done in 1 week. 5. Continue blood sugar check at home twice a day. 6. Follow up primary care provider in one week. 7. Follow up Dr. Taqueria De Guzman in 2-3 weeks. Dictated by... Altagracia Buitrago Unit #: [id number] #: [id number] Patient: MAC NAVARRO Jessica TD: 11/24/2016 07:51 JOB #: [id number] DISCHARGE SUMMARY Page 1 of 1 X Deepthi Gann MD X DISCHARGE SUMMARY
--- NOTE | ~2016-11-18 | CR72 ---
[facility] A Service of [facility] & [facility] RADIOLOGY TEXT RESULTS PATIENT: MAC ALEXANDER LOCATION: [facility] 322-01 : 44 UNIT #: [id number] AGE: [address]: Deepthi Gann MD SEX: F ORDER DR: [id number] [facility] [address] [place], [place] [address] [id number] I MR#: [id number] Acc #: [id number] NAME: MAC ALEXANDER : 1945 SEX: F STUDY DATE/TIME: 11/20/2016 11:44 UNIT: [address] ROOM: [facility] STUDY DESCRIPTION: CR Chest Single View Portable Attending Physician: Deepthi Gann M.D. Ordering Physician: Augustus Pandey M.D. Primary Care Physician: Luis Luna Jr., M.D. MEDICAL IMAGING REPORT This report is preliminary unless electronic signature is present EXAM Portable chest, 11/20/2016. HISTORY Chest pain, shortness of breath, and abdominal pain beginning today, asthma. Smoking history. FINDINGS The cardiac and mediastinal structures are stable compared with 08/09/2016. The lungs are hyperinflated with emphysematous and fibrotic changes characteristic of COPD. No airspace consolidation is seen. There are no pleural effusions. IMPRESSION COPD. No active pulmonary disease. Dictated by... Bo Johnson M.D. THIS IS AN ELECTRONICALLY VERIFIED REPORT Bo Johnson M.D. at 11/21/2016 6:38 AM LONA/sis TD: 11/20/2016 17:13 JOB #: [id number] MEDICAL IMAGING REPORT Page 1 of 1 COPY
[~2016-11-18 18:16] MED LIST changes: +ALBUTEROL 0.5ML NEB; +ASPIRIN81 MG PO; +CATAPRES0.1 MG TD; +ELIQUIS5 MG PO; +FERREX 150 PLU1 EACH PO; +FLEXERIL PO; +HUMULIN N VIAL; +LIPITOR80 MG PO; +LORTAB 5-325 M1 EACH PO; +MAGOX 400400 MG PO; +MIRALAX17 G2 PO; +MULTIVITAMINS1 EAC3; +NOVOLOG MI100 UNIT/1 SUBQ; +PRINIVIL40 MG PO; +TOPROL XL100 MG PO
[2016-11-18 19:43] LABS: BASOPHIL# 0.1 X10e3 (0-0.3); BASOPHIL% 0.9 % (0-2.5); EOSINOPHIL# 0.2 X10e3 (0-0.7); EOSINOPHIL% 1.6 % (0.0-7.0); LYMPHOCYTE# 4.6 X10e3 (1.0-3.5); LYMPHOCYTE% 42.7 % (17.0-45.0); MEAN CELL VOLUME 66.8 FL (83-96); MEAN CORPUSCULAR HEMOGLOBIN 20.7 PG (28-34); MEAN CORPUSCULAR HGB CONC 30.9 g/dL (30-36); MONOCYTE# 0.6 X10e3 (0-1.0); MONOCYTE% 5.2 % (3.0-12.0); NEUTROPHIL# 5.3 X10e3 (1.5-7.1); NEUTROPHIL% 49.6 % (40-75); PLATELET COUNT 364 X10e3 (140-420); RED BLOOD COUNT 4.34 X10e (3.90-5.30); RED CELL DISTRIBUTION WIDTH 24.3 % (11.0-15.5); WHITE BLOOD COUNT 10.7 X10e3 (4.0-10.5)
[2016-11-18 19:50] LABS: INR 0.9; PARTIAL THROMBOPLASTIN TIME 22.6 SECONDS (23.5-31.3); PROTHROMBIN TIME (PATIENT) 10.3 SECONDS (10.0-11.7)
[2016-11-18 19:51] LABS: DIFF IND YES
[2016-11-18 19:57] LABS: ALBUMIN SERUM 2.9 g/dL (3.5-5.0); ALKALINE PHOSPHATASE 187 U/L (32-92); ALT (SGPT) 12 U/L (10-40); AST (SGOT) 16 U/L (10-42); BILIRUBIN, DIRECT 0.1 mg/dL (0.0-0.2); BLOOD UREA NITROGEN 8 mg/dL (9-23); BUN/CREATININE RATIO 11.42; CALCIUM SERUM 8.5 mg/dL (8.4-10.2); CARBON DIOXIDE 26 mmol/L (22-31); CHLORIDE 98 mmol/L (100-111); CREATININE SERUM 0.7 mg/dL (0.6-1.4); GLOM FILT RATE Estimated 100.3 mL/min (>60); POTASSIUM 3.5 mmol/L (3.5-5.1); PROTEIN TOTAL SERUM 6.6 g/dL (6.0-8.3); SODIUM 131 mmol/L (135-145)
[2016-11-18 19:58] LABS: BILIRUBIN,TOTAL <0.1 mg/dL (0.2-2.0); GLUCOSE FASTING 504 mg/dL (70-110)
[2016-11-18 20:09] LABS: PLATELET ESTIMATE NORMAL (NORMAL); RBC NORMAL YES
[2016-11-18 20:10] LABS: ANISOCYTOSIS MOD; HYPOCHROMIA MOD
[2016-11-19 07:17] LABS: HEMATOCRIT 27.3 % (35.0-45.0); HEMOGLOBIN 8.2 gm/dL (12.0-16.0); MEAN CELL VOLUME 67.5 FL (83-96); MEAN CORPUSCULAR HEMOGLOBIN 20.3 PG (28-34); MEAN PLATELET VOLUME 9.4 FL (6.5-11.5); RED BLOOD COUNT 4.05 X10e (3.90-5.30); RED CELL DISTRIBUTION WIDTH 23.6 % (11.0-15.5); WHITE BLOOD COUNT 10.9 X10e3 (4.0-10.5)
[2016-11-19 11:42] LABS: IRON SERUM 6 ug/dL (28-170); TOTAL IRON BINDING CAPACITY 341 ug/dL (269-535); TRANSFERRIN 244 mg/dL (192-382); TRANSFERRIN SATURATION 2 % (20-50)
[2016-11-19 11:53] LABS: FOLATE (FOLIC ACID) 18.8 ng/mL (>5.8)
[2016-11-19] MEDS ORDERED: PROTONIX PO (18:29)
[2016-11-19] MEDS ORDERED: LISINOPRIL20 MG PO (18:30)
[2016-11-19] MEDS ORDERED: LOW DOSE ASPIRI81 M2 PO (18:32)
[2016-11-19] MEDS ORDERED: CATAPRES-TTS-20.2 M1 TD (18:32)
[2016-11-19] MEDS ORDERED: THERA-M CAPLET1 EACH PO (18:33)
[2016-11-19] MEDS ORDERED: CARAFATE1 GM PO (18:34)
[2016-11-19] MEDS ORDERED: MAGNESIUM400 M1 PO (18:35)
[2016-11-19] MEDS ORDERED: BACTRIM DS TAB1 EACH PO (18:36)
[2016-11-19] MEDS ORDERED: LANTUS SOL100 UNIT/1 SUBQ (18:39)
[2016-11-19] MEDS ORDERED: HUMALOG100 UNIT/2 SUBQ (18:39)
[2016-11-20 05:42] LABS: HEMATOCRIT 26.7 % (35.0-45.0); HEMOGLOBIN 8.1 gm/dL (12.0-16.0); MEAN CELL VOLUME 67.6 FL (83-96); MEAN CORPUSCULAR HEMOGLOBIN 20.5 PG (28-34); MEAN CORPUSCULAR HGB CONC 30.3 g/dL (30-36); MEAN PLATELET VOLUME 9.3 FL (6.5-11.5); RED BLOOD COUNT 3.95 X10e (3.90-5.30); WHITE BLOOD COUNT 14.2 X10e3 (4.0-10.5)
[2016-11-20 06:18] LABS: BLOOD UREA NITROGEN <5 mg/dL (9-23); BUN/CREATININE RATIO 7.14; CALCIUM SERUM 8.4 mg/dL (8.4-10.2); CARBON DIOXIDE 23 mmol/L (22-31); CHLORIDE 106 mmol/L (100-111); CREATININE SERUM 0.7 mg/dL (0.6-1.4); GLOM FILT RATE Estimated 100.3 mL/min (>60); GLUCOSE FASTING 213 mg/dL (70-110); POTASSIUM 3.1 mmol/L (3.5-5.1); SODIUM 136 mmol/L (135-145)
[2016-11-20 16:26] LABS: URINE APPEARANCE CLEAR; URINE BILIRUBIN NEG (NEG); URINE BLOOD 1+ (NEG); URINE COLOR YELLOW; URINE GLUCOSE 100 MG/DL (NEG); URINE KETONE NEG (NEG); URINE LEUKOCYTE ESTERASE NEG (NEG); URINE NITRATE POS (NEG); URINE PH 5.5 (5-8); URINE PROTEIN 3+ (NEG); URINE SPECIFIC GRAVITY 1.011 (1.003-1.035); URINE UROBILINOGEN 0.2 MG/DL (NEG)
[2016-11-20 16:28] LABS: URINE BACTERIA AUWI 2+ (NEGATIVE); URINE SQUAMOUS EPITHELIAL CELL OCC /[HPF]
[2016-11-21 05:47] LABS: HEMATOCRIT 25.3 % (35.0-45.0); HEMOGLOBIN 7.5 gm/dL (12.0-16.0); MEAN CELL VOLUME 67.9 FL (83-96); MEAN CORPUSCULAR HEMOGLOBIN 20.1 PG (28-34); MEAN CORPUSCULAR HGB CONC 29.6 g/dL (30-36); MEAN PLATELET VOLUME 9.4 FL (6.5-11.5); RED BLOOD COUNT 3.73 X10e (3.90-5.30); RED CELL DISTRIBUTION WIDTH 23.5 % (11.0-15.5); WHITE BLOOD COUNT 12.8 X10e3 (4.0-10.5)
[2016-11-21 07:09] LABS: ALBUMIN SERUM 2.3 g/dL (3.5-5.0); BILIRUBIN,TOTAL 0.1 mg/dL (0.2-2.0); BUN/CREATININE RATIO 7.14; CALCIUM SERUM 8.4 mg/dL (8.4-10.2); CREATININE SERUM 0.7 mg/dL (0.6-1.4); GLOM FILT RATE Estimated 100.3 mL/min (>60); POTASSIUM 3.5 mmol/L (3.5-5.1)
[2016-11-22 07:18] LABS: HEMATOCRIT 33.9 % (35.0-45.0); HEMOGLOBIN 10.5 gm/dL (12.0-16.0); MEAN CELL VOLUME 73.5 FL (83-96); MEAN CORPUSCULAR HEMOGLOBIN 22.8 PG (28-34); MEAN PLATELET VOLUME 10.4 FL (6.5-11.5); RED BLOOD COUNT 4.61 X10e (3.90-5.30); RED CELL DISTRIBUTION WIDTH 26.4 % (11.0-15.5); WHITE BLOOD COUNT 14.6 X10e3 (4.0-10.5)
[2016-11-22 07:55] LABS: MAGNESIUM 2.1 mg/dL (1.6-3.0); POTASSIUM 4.1 mmol/L (3.5-5.1)
[2016-11-23 05:41] LABS: HEMATOCRIT 32.5 % (35.0-45.0); MEAN CELL VOLUME 73.4 FL (83-96); MEAN CORPUSCULAR HEMOGLOBIN 22.6 PG (28-34); MEAN CORPUSCULAR HGB CONC 30.8 g/dL (30-36); MEAN PLATELET VOLUME 9.5 FL (6.5-11.5); RED BLOOD COUNT 4.42 X10e (3.90-5.30); RED CELL DISTRIBUTION WIDTH 27.3 % (11.0-15.5); WHITE BLOOD COUNT 13.2 X10e3 (4.0-10.5)
[2016-11-23] MEDS ORDERED: TYLENOL325 M1 PO (11:20)
[2016-11-23] MEDS ORDERED: LEVAQUIN PO (11:21)
== END 2016-11-23 16:18 | disposition home health service (06) | DRG 378 ==
LOC: CED 18:16 → CEDOF 21:30 → CED 22:03 → CEDOF 22:51 → C3A PCU 22:51
PROVIDERS: Emergency Medicine; Internal Medicine; Internal Medicine Gastroenterology; Internal Medicine Infectious Disease; Physician Assistant Medical
PROC: 0DJ08ZZ Inspection of Upper Intestinal Tract, Via Natural or Artificial Opening Endoscopic (ICD-10-PCS; principal; 2016-11-20 08:00)
PROC: 30233N1 Transfusion of Nonautologous Red Blood Cells into Peripheral Vein, Percutaneous Approach (ICD-10-PCS; 2016-11-21)
DX: K92.2 Gastrointestinal hemorrhage, unspecified (principal); E87.1 Hypo-osmolality and hyponatremia; N39.0 Urinary tract infection, site not specified; J44.9 Chronic obstructive pulmonary disease, unspecified; I10 Essential (primary) hypertension; E11.9 Type 2 diabetes mellitus without complications; D50.9 Iron deficiency anemia, unspecified; Z89.611 Acquired absence of right leg above knee; F32.9 Major depressive disorder, single episode, unspecified; Z88.0 Allergy status to penicillin; Z96.652 Presence of left artificial knee joint; I25.10 Atherosclerotic heart disease of native coronary artery without angina pectoris; G89.4 Chronic pain syndrome; Z87.11 Personal history of peptic ulcer disease; F17.210 Nicotine dependence, cigarettes, uncomplicated; Z86.718 Personal history of other venous thrombosis and embolism; Z86.711 Personal history of pulmonary embolism; E78.5 Hyperlipidemia, unspecified; Z79.01 Long term (current) use of anticoagulants; Z86.73 Personal history of transient ischemic attack (TIA), and cerebral infarction without residual deficits; Z79.4 Long term (current) use of insulin
CPT/HCPCS: 36415; 36430; 71010; 80048; 80053; 80076; 81003; 82274; 82607; 82728; 82746; 82947; 83540; 83550; 83735; 84132; 85025; 85027; 85610; 85730; 86850; 86900; 86901; 86923; 87086; 87088; 87493; 99284; C9113; J1815; J1956; J2250; J2405; J2916; J3475; P9016